=== PATIENT | female | born 1990 | race African-American/Black ===

== ENCOUNTER 2017-05-29 21:36 | Emergency (ER) | payer SELFPAY ==
[~2017-05-29] VITALS: Ht 162.6 cm; Wt 86.0 kg
[2017-05-29] MEDS ORDERED: LORAZEPAM 1MG TABLET PO ONE (23:30)
[2017-05-29] MEDS ORDERED: IBUPROFEN 600MG TABLET PO ONE (23:30)
[2017-05-30 01:10] VITALS: BP 137/84
== END 2017-05-30 01:16 | disposition home or self-care (01) ==
LOC: ER 21:36
DX: F41.0 Panic disorder [episodic paroxysmal anxiety] (principal); G89.29 Other chronic pain; M54.9 Dorsalgia, unspecified
CPT/HCPCS: 99283